=== PATIENT | male | born 1975 | race Caucasian/White ===

== ENCOUNTER 2021-08-12 09:58 | Emergency (ER) | payer OTHER, SELFPAY ==
[2021-08-12] VITALS (17 sets, daily range): BP systolic 185–229; BP diastolic 105–131; PULSE 60–67; RESP 14–26; TEMP 36.9; O2SAT 96–99; BMI 41.1
--- NOTE | 2021-08-12 09:58 | ECG_ITS ---
APPROVED REPORT Exam: Resting ECG HR:64 bpm ECG Measurements Heart Rate 64 AXES WV 179 P 41 QRSd 133 QRS -48 QT 512 T 111 QTc 521 Conclusion SINUS RHYTHM INTRAVENTRICULAR CONDUCTION DELAY [130+ ms QRS DURATION] ABNORMAL ECG UNCONFIRMED REPORT Electronically signed by : Camacho Clarke MD 08/13/2021 20:13:54
--- NOTE | 2021-08-12 10:01 | HMH.EDGENADL ---
ED Disposition Clinical Impression: Chest wall pain Hypertension Qualifiers: Hypertension type: unspecified Qualified Code(s): I10 - Essential (primary) hypertension Disposition: Home, Self-Care Condition on Discharge: Good Instructions: DI for Atypical Chest Pain, DI for High Blood Pressure Additional Instructions: Take your blood pressure medication at home this evening. Tylenol as needed for pain. Follow-up with your primary care provider, call Saturday to make appointment. Additional instructions for CHEST PAIN: See your physician as soon as possible for further evaluation. Return immediately if worsening chest pain, vomiting, shortness of breath, fever, coughing of blood. Referrals: Provider,Referral, [Primary Care Provider] - - Critical Care Critical Care Time: No Attestation: On , the high probability of a clinically significant, sudden or life threatening deterioration of the following system(s) required my full and direct attention, intervention and personal management. The time I documented below is in addition to time spent performing reported procedures but includes the following listed in this critical care notation. Medical Decision Making - Robert Inquiry Pt receiving controlled substance: No Vital Signs: 08/12/21 10:03 08/12/21 10:10 08/12/21 10:31 Temperature 98.4 F Temperature Source Oral Pulse Rate 61 65 Pulse Rate [Left Radial] 62 Respiratory Rate 20 14 24 Blood Pressure 191/105 H 205/119 H Blood Pressure [Right Arm] 191/105 H Blood Pressure Mean 129 132 Blood Pressure Mean [Right Arm] 133 Blood Pressure Source Blood Pressure Position 02 Sat by Pulse Oximetry 96 99 98 Oxygen Delivery Method Room Air Room Air 08/12/21 11:01 08/12/21 11:14 08/12/21 11:31 Temperature Temperature Source Pulse Rate 61 61 63 Pulse Rate [Left Radial] Respiratory Rate 22 26 H 21 Blood Pressure 229/131 H 229/131 H 190/108 H Blood Pressure [Right Arm] Blood Pressure Mean 147 135 Blood Pressure Mean [Right Arm] Blood Pressure Source Blood Pressure Position Sitting 02 Sat by Pulse Oximetry 98 96 98 Oxygen Delivery Method Room Air 08/12/21 12:00 08/12/21 12:23 08/12/21 12:30 Temperature Temperature Source Pulse Rate 62 61 60 Pulse Rate [Left Radial] Respiratory Rate 23 22 19 Blood Pressure 195/112 H 195/112 H 186/111 H Blood Pressure [Right Arm] Blood Pressure Mean 137 127 Blood Pressure Mean [Right Arm] Blood Pressure Source Automatic Cuff Blood Pressure Position Sitting 02 Sat by Pulse Oximetry 97 96 97 Oxygen Delivery Method Room Air 08/12/21 12:57 08/12/21 13:20 08/12/21 13:24 Temperature Temperature Source Pulse Rate 60 61 62 Pulse Rate [Left Radial] Respiratory Rate 25 H 21 23 Blood Pressure 207/115 H 210/115 H 200/112 H Blood Pressure [Right Arm] Blood Pressure Mean 132 127 Blood Pressure Mean [Right Arm] Blood Pressure Source Automatic Cuff Blood Pressure Position Sitting 02 Sat by Pulse Oximetry 97 96 98 Oxygen Delivery Method Room Air 08/12/21 13:31 08/12/21 13:39 08/12/21 13:55 Temperature Temperature Source Pulse Rate 63 65 64 Pulse Rate [Left Radial] Respiratory Rate 22 21 20 Blood Pressure 185/106 H 194/110 H 194/110 H Blood Pressure [Right Arm] Blood Pressure Mean 125 122 Blood Pressure Mean [Right Arm] Blood Pressure Source Automatic Cuff Blood Pressure Position Sitting 02 Sat by Pulse Oximetry 97 97 97 Oxygen Delivery Method Room Air - Lab Data Lab Results 08/12/21 10:00: WBC 5.5, RBC 5.34, Hgb 12.5 L, Hct 38.6 L, MCV 72.3 L, MCH 23.4 L, MCHC 32.4, RDW 17.4, Plt Count 190, MPV 8.2, Neut % (Auto) 69.3, Lymph % (Auto) 21.3, Cole % (Auto) 4.7, Eos % (Auto) 3.3, Baso % (Auto) 1.4, Neut # (Auto) 3.8, Lymph # (Auto) 1.2, Cole # (Auto) 0.3, Eos # (Auto) 0.2, Baso # (Auto) 0.1 08/12/21 10:00: Sodium 139, Potassium 4.0, Chloride 105, Carbon
--- NOTE | 2021-08-12 10:02 | PC.NURSE ---
Nikki Dugan, RN at
--- NOTE | 2021-08-12 10:16 | XR_ITS ---
PROCEDURE INFORMATION: Exam: XR Chest Exam date and time: 08/12/2021 10:36 AM Age: 46 years old Clinical indication: Chest pressure; Patient HX: Chest pain TECHNIQUE: Imaging protocol: XR of the chest. Views: 2 views. COMPARISON: No relevant prior studies available. FINDINGS: Lungs: Unremarkable. No consolidation. Pleural spaces: Unremarkable. No pleural effusion. No pneumothorax. Heart/Mediastinum: Unremarkable. No cardiomegaly. Bones/joints: Unremarkable. IMPRESSION: No acute findings.
[2021-08-12 10:24] LABS: Chloride 105 mmol/L (98-107); Sodium 139 mmol/L (136-145)
[2021-08-12 10:26] LABS: Basophils # 0.1 K/mm3 (0-0.2); Basophils % 1.4 % (0.1-2.0); Eosinophils # 0.2 K/mm3 (0.0-0.4); Eosinophils % 3.3 % (0.1-12.0); Hematocrit 38.6 % (42.0-52.0); Hemoglobin 12.5 g/dL (14.1-18.0); Lymphocytes # 1.2 K/mm3 (0.7-4.5); Lymphocytes % 21.3 % (10-50); Mean Corpuscular HGB Conc 32.4 g/dL (31.8-35.4); Mean Corpuscular Hemoglobin 23.4 pg (27.0-31.2); Mean Corpuscular Volume 72.3 fl (80-94); Mean Platelet Volume 8.2 fl (7.4-10.4); Monocytes # 0.3 K/mm3 (0.1-1.0); Monocytes % 4.7 % (1.7-9.3); Neutrophils # 3.8 K/mm3 (1.8-7.8); Neutrophils % 69.3 % (37.0-80.0); Platelet Count 190 K/mm3 (142-424); Red Blood Count 5.34 M/mm3 (4.60-6.20); Red Cell Distribution Width 17.4 % (11.5-17.5); White Blood Count 5.5 K/mm3 (4.8-10.8)
[2021-08-12 10:27] LABS: Blood Urea Nitrogen 26 mg/dl (9-20); Creatinine Clearance Estimated 121 mL/min (50-200); Estimated Glomerular Filt Rate 47 ml/min (>60); GFR (African American) 57 ML/MIN (>60)
[2021-08-12 10:28] LABS: Calcium 8.6 mg/dl (8.4-10.2); Carbon Dioxide 26 mmol/L (22.0-30.0); Glucose 246 mg/dl (74-100)
[2021-08-12 10:39] LABS: Troponin I 0.03 ng/ml (0.00-0.034)
--- NOTE | 2021-08-12 10:43 | PC.NURSE ---
patient to radiology with pipe organ technician by wheelchair
--- NOTE | 2021-08-12 11:14 | PC.NURSE ---
RITA Banerjee aware of patients elevated BP
--- NOTE | 2021-08-12 11:21 | PC.NURSE ---
RITA Banerjee at [facility]
--- NOTE | 2021-08-12 12:37 | PC.NURSE ---
patient ambulatory to restroom without complications
--- NOTE | 2021-08-12 12:56 | PC.NURSE ---
patient updated that we are waiting on 2nd troponin. No needs at this time; friend at [facility]
[2021-08-12 13:52] LABS: Troponin I 0.03 ng/ml (0.00-0.034)
--- NOTE | 2021-08-12 14:09 | PC.NURSE ---
ED MD at [facility] for update on POC; friend at [facility]
== END 2021-08-12 14:49 | disposition home or self-care (01) ==
PROVIDERS: Emergency Provider Emergency Medicine
DX: R07.9 Chest pain, unspecified (principal); I12.9 Hypertensive chronic kidney disease with stage 1 through stage 4 chronic kidney disease, or unspecified chronic kidney disease; N18.9 Chronic kidney disease, unspecified; E11.9 Type 2 diabetes mellitus without complications; Z79.899 Other long term (current) drug therapy; Z88.5 Allergy status to narcotic agent; Z88.6 Allergy status to analgesic agent; Z59.00 Homelessness unspecified
CPT/HCPCS: 71046; 80048; 84484; 85025; 93005; 96374; 96376; 99285